=== PATIENT | female | born 1980 | race Hispanic/Latino ===

== ENCOUNTER 2018-03-07 21:50 | Emergency (ER) | payer OTHER ==
[2018-03-07] MEDS ORDERED: LIDOCAINE HCL 1% 20 ML VIAL ONE (22:25)
== END 2018-03-07 22:55 | disposition home or self-care (01) ==
LOC: EDH 21:50
DX: L02.31 Cutaneous abscess of buttock (principal); Z88.0 Allergy status to penicillin; Z90.49 Acquired absence of other specified parts of digestive tract
CPT/HCPCS: 10061

== ENCOUNTER 2018-03-08 16:20 | Emergency (ER) | payer OTHER | END 2018-03-08 16:43 | disposition home or self-care (01) | LOC: EDH 16:20 | DX: Z48.01 Encounter for change or removal of surgical wound dressing (principal); Z88.0 Allergy status to penicillin | CPT/HCPCS: 99281 ==

== ENCOUNTER 2023-01-14 17:26 | Emergency (ER) | payer OTHER ==
[~2023-01-14] VITALS: Ht 157.5 cm; Wt 76.2 kg
[2023-01-14 17:56] LABS: BASOPHILS % (AUTO) 0.6 % (0.0-5.0); EOSINOPHILS % (AUTO) 0.7 % (0.0-8.0); HEMATOCRIT 43.4 % (36-48); LYMPHOCYTES % (AUTO) 22.7 % (21.0-51.0); MEAN CORPUSCULAR HEMOGLOBIN 28.8 pg (27.0-33.0); MEAN CORPUSCULAR HGB CONC 33.9 g/dL (32.0-36.0); MEAN CORPUSCULAR VOLUME 85.1 fL (79-99); MONOCYTES % (AUTO) 4.9 % (3.0-13.0); NEUTROPHILS % (AUTO) 70.6 % (40.0-77.0); PLATELET COUNT (AUTO) 342 K/uL (130-400); RED CELL DISTRIBUTION WIDTH 12.2 % (11.0-15.5); WHITE BLOOD COUNT (AUTO) 10.5 K/uL (4.8-10.8)
[2023-01-14] MEDS ORDERED: 0.9% NACL 500ML IV.SOLN 500 ML IV ONE (18:00)
[2023-01-14] MEDS ORDERED: MORPHINE 2 MG SYG IVP ONE (18:00)
[2023-01-14] MEDS ORDERED: ASPIRIN 325MG EC TAB PO ONE (18:00)
[2023-01-14] MEDS ORDERED: ONDANSETRON 4MG INJ IVP ONE (18:00)
[2023-01-14 18:05] LABS: CREATININE 0.8 mg/dL (0.5-1.5); POTASSIUM 3.5 mmol/L (3.5-5.1)
[2023-01-14 18:14] LABS: ALBUMIN 3.9 g/dL (3.5-5.0); TOTAL PROTEIN, SERUM 7.6 g/dL (6.0-8.3)
[2023-01-14] MEDS ORDERED: IBUP-2070 PO (19:06)
[2023-01-14] MEDS ORDERED: CYCL-309 PO (19:06)
[2023-01-14 19:51] VITALS: BP 116/80
== END 2023-01-14 20:14 | disposition home or self-care (01) ==
LOC: EDH 17:26
DX: R07.89 Other chest pain (principal); Z88.0 Allergy status to penicillin
CPT/HCPCS: 99285; 96374; 71045; 96375; 84484; 80053; 85025; 36415; 93005; J7040; J2405